=== PATIENT | female | born 1995 | race Caucasian/White ===

== ENCOUNTER 2017-05-06 15:19 | Emergency (ER) | payer MEDICAID ==
[~2017-05-06] VITALS: Ht 160 cm; Wt 98.2 kg
[~2017-05-06 15:19] MED LIST: PREN1TAB52 PO
[2017-05-06 15:32] VITALS: BP 111/71
[2017-05-06 16:05] LABS: HEMATOCRIT 36.2 % (34.6-47.8); HEMOGLOBIN 11.9 g/dL (11.7-16.4); WHITE BLOOD COUNT 8.1 x10^3/uL (3.4-10)
[2017-05-06 16:16] LABS: BLOOD UREA NITROGEN 8 mg/dL (7-18)
[2017-05-06] MEDS ORDERED: ALBUTEROL SULFATE 2.5 MG/3 ML NPPB ONE (17:00)
[2017-05-06] MEDS ORDERED: ALBUTEROL SULFATE 2.5 MG/3 ML ONE (17:10)
== END 2017-05-06 17:42 | disposition home or self-care (01) ==
LOC: ED 17:00
DX: O26.892 Other specified pregnancy related conditions, second trimester (principal); Z3A.18 18 weeks gestation of pregnancy; B34.9 Viral infection, unspecified
CPT/HCPCS: 36415; 71020; 80048; 81003; 82040; 85025; 94640; 99285; J7613

== ENCOUNTER 2017-06-13 06:33 | Emergency (ER) | payer MEDICAID ==
[~2017-06-13] VITALS: Ht 160 cm; Wt 96.4 kg
[2017-06-13] MEDS ORDERED: HYDROcodone/APAP 7.5-325MG/15ML UDC ONE (07:18)
[2017-06-13] MEDS ORDERED: HYDROcodone/APAP 7.5-325MG/15ML UDC PO ONE (07:30)
[2017-06-13 07:44] LABS: RAPID INFLUENZA A Negative (Negative); RAPID INFLUENZA B POSITIVE (Negative)
[2017-06-13 08:29] VITALS: BP 115/54
== END 2017-06-13 08:58 | disposition home or self-care (01) ==
LOC: ED 06:50
DX: O99.512 Diseases of the respiratory system complicating pregnancy, second trimester (principal); J10.1 Influenza due to other identified influenza virus with other respiratory manifestations; Z3A.23 23 weeks gestation of pregnancy
CPT/HCPCS: 87081; 87400; 87880; 99284